=== PATIENT | male | born 1960 | race Caucasian/White ===

== ENCOUNTER → 2023-06-10 | Outpatient (CLI) | payer BC | LOC: DIA.ED 07:36 | DX: E11.40 Type 2 diabetes mellitus with diabetic neuropathy, unspecified (principal); Z79.84 Long term (current) use of oral hypoglycemic drugs; E78.5 Hyperlipidemia, unspecified | CPT/HCPCS: G0108 ==

== ENCOUNTER → 2023-12-16 | Outpatient (CLI) | payer BC | LOC: DIA.ED 12-08 13:00 | DX: E11.40 Type 2 diabetes mellitus with diabetic neuropathy, unspecified (principal); E78.5 Hyperlipidemia, unspecified; Z79.84 Long term (current) use of oral hypoglycemic drugs | CPT/HCPCS: G0108 ==